=== PATIENT | female | born 1940 | race American Indian/Alaskan Native ===

== ENCOUNTER 2018-12-23 21:08 | Inpatient (IN) | payer MEDICARE ==
--- NOTE | 2018-12-23 21:33 | Cat Scan Report ---
PROCEDURE: CT head without contrast. TECHNIQUE: Computerized tomography of the head was performed without contrast material. CT DOSE LENGTH PRODUCT: 928.2 mGycm HISTORY: neuro deficits <6hrs or sx present upon awakening COMPARISONS: None. FINDINGS: There is mild cerebral atrophy. There is moderate evidence of chronic ischemic white matter disease. There are some small areas of encephalomalacia present. These are located in the right temporal lobe, right parietal lobe and the left parietal lobe. These were present previously. They likely represent previous infarcts. There are no mass lesions. There is no intracranial hemorrhage. The calvarium aleksandra ears intact. The mastoid air cells and paranasal sinuses are clear as far as visualized. The sella tu rcica is mildly enlarged with CSF attenuation. This could represent an empty sella. IMPRESSION: Chronic ischemic changes as described. Possible empty sella. No evidence of acute diseas e. This document is electronically signed by Сергей Lowery MD., December 23 2018 09:31:17 PM ET
[2018-12-23 21:52] LABS: Basophils % (Auto) 1.1 % (0.0-1.8); Eosinophils # (Auto) 0.1 K/mm3 (0.0-0.4); Eosinophils % (Auto) 1.4 % (0.0-4.3); Hematocrit 37.6 % (30.3-42.9); Hemoglobin 12.4 gm/dl (10.1-14.3); Lymphocytes % (Auto) 24.4 % (13.4-35.0); Mean Corpuscular HGB Conc 33 % (30-34); Mean Corpuscular Volume 79 fl (79-97); Monocytes # (Auto) 0.4 K/mm3 (0.0-0.8); Monocytes % (Auto) 8.5 % (0.0-7.3); Platelet Count 203 K/mm3 (140-440); Red Blood Count 4.77 M/mm3 (3.65-5.03); Red Cell Distribution Width 14.8 % (13.2-15.2)
[2018-12-23 22:14] LABS: BUN/Creatinine Ratio 10; Blood Urea Nitrogen 7 mg/dL (7-17); Calcium 9.3 mg/dL (8.4-10.2); Hemolysis Index 14
[2018-12-23 22:22] LABS: INR 0.95 (0.87-1.13); Partial Thromboplastin Time 24.3 Sec. (24.2-36.6)
--- NOTE | 2018-12-23 23:39 | Cat Scan Report ---
PROCEDURE: CT ANGIO NECK TECHNIQUE: CT angiogram neck with intravenous contrast HISTORY: CVA COMPARISONS: FINDINGS: Origin of the great vessels is unremarkable The common carotid arteries demonstrate normal course and caliber. There is minimal plaque formation at the right carotid bulb without evidence for significant stenosis . Mid to distal right ICA is unremarkable There is calcified plaque at the origin of the left ICA estimated degree of stenosis 38%. Distal lef t ICA is unremarkable. Both vertebral arteries are identified and normal in caliber without evidence for stenosis or occlusi on. IMPRESSION: Minimal plaque within the right carotid bulb Calcified plaque left carotid bulb estimated degree of stenosis 38% Otherwise negative study . This document is electronically signed by Norris Chester MD., December 23 2018 11:37:19 PM ET
[2018-12-24] MEDS ORDERED: BABY ASPIRIN PO ONE (00:11)
--- NOTE | 2018-12-24 00:27 | Cat Scan Report ---
PROCEDURE: CT ANGIO HEAD TECHNIQUE: Computerized tomographic angiography of the head was performed after the IV injection of iodinated nonionic contrast including image processing. The image data was postprocessed using 2-dim ensional multiplanar reformatted (MPR) and 3-dimensional (MIP and/or volume rendered) techniques. CT DOSE LENGTH PRODUCT: mGycm HISTORY: CVA COMPARISONS: CT of the head dated December 23, 2018 . FINDINGS: Carotid siphon: There is calcified plaque in the cavernous portions of the internal carotid arteries without stenosis. . Anterior cerebral: Normal . Middle cerebral: Normal . Posterior cerebral: Normal . Vertebral arteries including basilar: The right vertebral artery is dominant. There is minimal calci fied plaque. . Aneurysms: None . Dural sinuses: Normal. Incidental enlargement of the right thyroid gland with bilateral nodules. IMPRESSION: There is no intracranial arterial occlusion or stenosis. There is no aneurysm or vascula r malformation. There is atherosclerosis as described. . This document is electronically signed by Nghia Pardo MD., December 24 2018 12:25:23 AM ET
[2018-12-24] MEDS ORDERED: TYLENOL PO PRN ×2 (01:19→02:38)
[2018-12-24] MEDS ORDERED: SODIUM CHLORIDE FLUSH SYRINGE 10 ML IV PRN (01:19)
[2018-12-24] MEDS ORDERED: ZOFRAN IV PRN ×2 (01:19→02:38)
--- NOTE | 2018-12-24 02:19 | Emergency Department Report ---
ED Neuro Deficit HPI - General Chief Complaint: Neuro Symptoms/Deficit Stated Complaint: AMS/POSS STROKE Time Seen by Provider: 12/23/18 21:17 Source: patient, family, EMS Mode of arrival: Stretcher Limitations: Physical Limitation - History of Present Illness Initial Comments: Mrs. Ziegler is a 78 yo female with hx of HTN, Dementia, CVA who presents with stroke symptoms. noted that patient was leaning toward her left. She then developed confusion and left sided weakness. Symptoms began 1:30 PM. EMS noted left sided weakness and facial droop which is rapidly improving. According to EMR, experienced acute occipital infarct, CVA in September. stated that she had a complete recovery. -: Sudden, This morning Location: left face, left arm, left leg Presenting Symptoms: Present: Weak/Paralyzed One Side History of same: Yes Place: home Severity: moderate Quality: weak Improves With: time On Anticoagulants: No Context: sudden onset Associated Symptoms: denies other symptoms - Related Data Home Medications: Home Medications Medication Instructions Recorded Confirmed Last Taken Carvedilol [Coreg] 25 mg PO BID 10/08/18 12/23/18 Unknown Lisinopril/Hydrochlorothiazide 1 tab PO QDAY 10/08/18 12/23/18 Unknown [Zestoretic 20-12.5 mg] amLODIPine [Norvasc] 5 mg PO DAILY 10/08/18 12/23/18 Unknown Allergies/Adverse Reactions: Allergies Allergy/AdvReac Type Severity Reaction Status Date / Time No Known Allergies Allergy Verified 10/08/18 08:48 ED Review of Systems ROS: Stated complaint: AMS/POSS STROKE Other details as noted in HPI Comment: All other systems reviewed and negative Constitutional: denies: fever, malaise Respiratory: denies: cough Cardiovascular: denies: chest pain ED Past Medical Hx - Past Medical History Previous Medical History?: Yes Hx Hypertension: Yes Hx CVA: Yes (2016) Hx Diabetes: Yes Hx HIV: No - Surgical History Past Surgical History?: No - Social History Smoking Status: Never Smoker Substance Use Type: None - Medications Home Medications: Home Medications Medication Instructions Recorded Confirmed Last Taken Type Carvedilol [Coreg] 25 mg PO BID 10/08/18 12/23/18 Unknown History Lisinopril/Hydrochlorothiazide 1 tab PO QDAY 10/08/18 12/23/18 Unknown History [Zestoretic 20-12.5 mg] amLODIPine [Norvasc] 5 mg PO DAILY 10/08/18 12/23/18 Unknown History ED Neuro Physical Exam - General Limitations: Physical Limitation General appearance: alert, in no apparent distress Suspected Stroke: Yes - Head Head exam: Present: atraumatic, normocephalic - Eye Eye exam: Present: normal appearance - ENT ENT exam: Present: mucous membranes moist - Neck Neck exam: Present: normal inspection, full ROM - Respiratory Respiratory exam: Present: normal lung sounds bilaterally. Absent: respiratory distress, wheezes, rales, rhonchi - Cardiovascular Cardiovascular Exam: Present: regular rate, normal rhythm, normal heart sounds. Absent: systolic murmur, diastolic murmur, rubs, gallop - GI/Abdominal GI/Abdominal exam: Present: soft, normal bowel sounds. Absent: distended, tenderness, guarding, rebound - Extremities Exam Extremities exam: Present: normal inspection - Back Exam Back exam: Present: normal inspection - Neurological Exam Neurological exam: Present: alert, oriented X3 - NIHSS Assessment Interval: Baseline 1a. Level of Consciousness: alert/keenly responsive 1b. LOC Questions: answers both correctly 1c. LOC Commands: performs tasks correctly 2. Best Gaze: normal 3. Visual: no visual loss 4. Facial Palsy: minor paralysis 5b. Motor Arm Right: no drift 5a. Motor Arm Left: drift 6a. Motor Leg Left: drift 6b. Motor Leg Right: no drift 7. Limb Ataxia: absent 8. Sensory: normal 9. Best Language: no aphasia 10. Dysarthria: normal 11. Extinction/Inattention: no abnormality Total Score: 3 Stroke Severity: Minor Stroke - Psychiatric Psychiatric exam: Present: normal affect, normal mood - Skin Skin exam: Present: warm, dry, intact, normal color. Absent: rash ED Course Vital Signs 12/23/18 12/23/18 12/23/18 21:43 21:46 22:00 Temperature 98.7 F Pulse Rate 73 69 Respiratory 18 18 19 Rate Blood Pressure 166/103 166/53 Blood Pressure 166/53 [Right] O2 Sat by Pulse 97 97 98 Oximetry 12/23/18 12/23/18 12/23/18 23:00 23:20 23:30 Temperature 98.6 F Pulse Rate 75 75 74 Respiratory 14 15 20 Rate Blood Pressure 166/53 140/65 Blood Pressure 140/65 [Right] O2 Sat by Pulse 97 98 99 Oximetry 12/24/18 12/24/18 00:10 01:00 Temperature Pulse Rate 70 74 Respiratory 11 L 15 Rate Blood Pressure 177/77 Blood Pressure 166/72 [Right] O2 Sat by Pulse 98 98 Oximetry - Lab Data Result diagrams: 12/23/18 Unknown 12/23/18 Unknown Lab Results 12/23/18 12/23/18 12/23/18 Range/Units Unknown Unknown Unknown WBC 4.2 L (4.5-11.0) K/mm3 RBC 4.77 (3.65-5.03) M/mm3 Hgb 12.4 (10.1-14.3) gm/dl Hct 37.6 (30.3-42.9) % MCV 79 (79-97) fl MCH 26 L (28-32) pg MCHC 33 (30-34) % RDW 14.8 (13.2-15.2) % Plt Count 203 (140-440) K/mm3 Lymph % (Auto) 24.4 (13.4-35.0) % [place] % (Auto) 8.5 H (0.0-7.3) % Eos % (Auto) 1.4 (0.0-4.3) % Baso % (Auto) 1.1 (0.0-1.8) % Lymph # 1.0 L (1.2-5.4) K/mm3 [place] # 0.4 (0.0-0.8) K/mm3 Eos # 0.1 (0.0-0.4) K/mm3 Baso # 0.0 (0.0-0.1) K/mm3 Seg Neutrophils % 64.6 (40.0-70.0) % Seg Neutrophils # 2.7 (1.8-7.7) K/mm3 PT 13.2 (12.2-14.9) Sec. INR 0.95 (0.87-1.13) APTT 24.3 (24.2-36.6) Sec. Thrombin Time 16.3 (15.1-19.6) Sec. Sodium (137-145) mmol/L Potassium (3.6-5.0) mmol/L Chloride (98-107) mmol/L Carbon Dioxide (22-30) mmol/L Anion Gap mmol/L BUN (7-17) mg/dL Creatinine (0.7-1.2) mg/dL Estimated GFR ml/min BUN/Creatinine Ratio % Glucose (65-100) mg/dL Calcium (8.4-10.2) mg/dL Troponin T (0.00-0.029) ng/mL 12/23/18 Range/Units Unknown WBC (4.5-11.0) K/mm3 RBC (3.65-5.03) M/mm3 Hgb (10.1-14.3) gm/dl Hct (30.3-42.9) % MCV (79-97) fl MCH (28-32) pg MCHC (30-34) % RDW (13.2-15.2) % Plt Count (140-440) K/mm3 Lymph % (Auto) (13.4-35.0) % [place] % (Auto) (0.0-7.3) % Eos % (Auto) (0.0-4.3) % Baso % (Auto) (0.0-1.8) % Lymph # (1.2-5.4) K/mm3 [place] # (0.0-0.8) K/mm3 Eos # (0.0-0.4) K/mm3 Baso # (0.0-0.1) K/mm3 Seg Neutrophils % (40.0-70.0) % Seg Neutrophils # (1.8-7.7) K/mm3 PT (12.2-14.9) Sec. INR (0.87-1.13) APTT (24.2-36.6) Sec. Thrombin Time (15.1-19.6) Sec. Sodium 143 (137-145) mmol/L Potassium 3.7 (3.6-5.0) mmol/L Chloride 105.6 (98-107) mmol/L Carbon Dioxide 28 (22-30) mmol/L Anion Gap 13 mmol/L BUN 7 (7-17) mg/dL Creatinine 0.7 (0.7-1.2) mg/dL Estimated GFR > 60 ml/min BUN/Creatinine Ratio 10 % Glucose 118 H (65-100) mg/dL Calcium 9.3 (8.4-10.2) mg/dL Troponin T < 0.010 (0.00-0.029) ng/mL Interpretation: no acute changes 12/24/18 02:18 EKG obtained 2152 NSR 70 bpm nl axis nl intervals no ST elevation - Radiology Data Radiology results: report reviewed CT head: encephalomalacia, several remote infarcts, no acute process CTA neck: calcification carotid bulb, mild carotid stenosis CTA head: mild atherosclerosis - Medical Decision Making TIA, tpa not indicated with hx of recent CVA and rapidly improving symptoms. Given ASA, permissive hypertension admitted to hospitalist service in good condition Critical Care Time: Yes Critical care time in (mins) excluding proc time.: 40 Critical care attestation.: If time is entered above; I have spent that time in minutes in the direct care of this critically ill patient, excluding procedure time. 40 minutes of critical care time were used in the care of the patient excluding procedures. I spoke with hospitalist, neurologist, EMS. I came to stretcher immediately upon arrival. Code stroke activated. ED Disposition Clinical Impression: TIA (transient ischemic attack) Disposition: DC-09 OP ADMIT IP TO THIS HOSP Is pt being admited?: Yes Does the pt Need Aspirin: No Condition: Stable
[2018-12-24] MEDS ORDERED: LOVENOX SUB-Q ONE ×2 (02:36→03:39)
--- NOTE | 2018-12-24 02:43 | History and Physical Report ---
<STEFFI MARSHALL - Last Filed: 12/24/18 07:30> History of Present Illness Date of examination: 12/24/18 Date of admission: 12/25/2019 Chief complaint: TIA History of present illness: Patient is 78-year-old female with PMHx of HTN, Dementia, CVA who was brought to the ER by her who stated that he noticed that the patient was leaning toward her left side while sitting in the passenger seat. Pt's also states that pt developed confusion and some left sided weakness during that time. EMS was called, patient was noted to have left sided weakness and facial droop prior to coming to the ER. Patient was seen in the ER, alert but very confused and not able to complete the sentence or described the event that preceded the admission. Patient's at bedside reports that the patient was out with him and developed confusion and disorientation. Pt had a CT of the head and neck which showed some mild atrophy, 38% stenosis, Pt is admitted for further evaluation of CVA/TIA. Past History Past Medical History: hypertension, stroke, other (Dememtia) Past Surgical History: No surgical history Social history: no significant social history Medications and Allergies Allergies Allergy/AdvReac Type Severity Reaction Status Date / Time No Known Allergies Allergy Verified 10/08/18 08:48 Home Medications Medication Instructions Recorded Confirmed Last Taken Type Carvedilol [Coreg] 25 mg PO BID 10/08/18 12/23/18 Unknown History Lisinopril/Hydrochlorothiazide 1 tab PO QDAY 10/08/18 12/23/18 Unknown History [Zestoretic 20-12.5 mg] amLODIPine [Norvasc] 5 mg PO DAILY 10/08/18 12/23/18 Unknown History Aspirin [Aspirin BABY CHEW TAB] 81 mg PO QDAY #30 tab.chew 12/27/18 Unknown Rx AtorvaSTATin [Lipitor] 40 mg PO QHS #30 tablet 12/27/18 Unknown Rx Active Meds: Active Medications Acetaminophen (Tylenol) 650 mg PO Q4H PRN PRN Reason: Pain MILD(1-3)/Fever >100.5/SHAH Ondansetron HCl (Zofran) 4 mg IV Q8H PRN PRN Reason: Nausea And Vomiting Sodium Chloride (Sodium Chloride Flush Syringe 10 Ml) 10 ml IV BID ANNETTE Sodium Chloride (Sodium Chloride Flush Syringe 10 Ml) 10 ml IV PRN PRN PRN Reason: LINE FLUSH Review of Systems Neurological: weakness, other (facial droop) Exam - Constitutional Vitals: Temp Pulse Resp BP Pulse Ox 98.6 F 74 15 166/72 98 12/23/18 23:20 12/24/18 01:00 12/24/18 01:00 12/24/18 01:00 12/24/18 01:00 General appearance: Present: no acute distress - Neck Neck: Present: normal ROM - Respiratory Respiratory effort: normal Respiratory: bilateral: CTA - Cardiovascular Heart Sounds: Present: S1 & S2 - Extremities Extremities: no ischemia Peripheral Pulses: within normal limits - Abdominal General gastrointestinal: Present: non-tender, non-distended Female genitourinary: Present: deferred - Rectal Rectal Exam: deferred - Integumentary Integumentary: Present: warm, dry - Musculoskeletal Musculoskeletal: strength equal bilaterally - Psychiatric Psychiatric: appropriate mood/affect - Neurologic Neurologic: CNII-XII intact Results - Labs CBC & Chem 7: 12/23/18 Unknown 12/23/18 Unknown Labs: Laboratory Last Values WBC 4.2 K/mm3 (4.5-11.0) L 12/23/18 Unknown RBC 4.77 M/mm3 (3.65-5.03) 12/23/18 Unknown Hgb 12.4 gm/dl (10.1-14.3) 12/23/18 Unknown Hct 37.6 % (30.3-42.9) 12/23/18 Unknown MCV 79 fl (79-97) 12/23/18 Unknown MCH 26 pg (28-32) L 12/23/18 Unknown MCHC 33 % (30-34) 12/23/18 Unknown RDW 14.8 % (13.2-15.2) 12/23/18 Unknown Plt Count 203 K/mm3 (140-440) 12/23/18 Unknown Lymph % (Auto) 24.4 % (13.4-35.0) 12/23/18 Unknown [place] % (Auto) 8.5 % (0.0-7.3) H 12/23/18 Unknown Eos % (Auto) 1.4 % (0.0-4.3) 12/23/18 Unknown Baso % (Auto) 1.1 % (0.0-1.8) 12/23/18 Unknown Lymph # 1.0 K/mm3 (1.2-5.4) L 12/23/18 Unknown [place] # 0.4 K/mm3 (0.0-0.8) 12/23/18 Unknown Eos # 0.1 K/mm3 (0.0-0.4) 12/23/18 Unknown Baso # 0.0 K/mm3 (0.0-0.1) 12/23/18 Unknown Seg Neutrophils % 64.6 % (40.0-70.0) 12/23/18 Unknown Seg Neutrophils # 2.7 K/mm3 (1.8-7.7) 12/23/18 Unknown PT 13.2 Sec. (12.2-14.9) 12/23/18 Unknown INR 0.95 (0.87-1.13) 12/23/18 Unknown APTT 24.3 Sec. (24.2-36.6) 12/23/18 Unknown Thrombin Time 16.3 Sec. (15.1-19.6) 12/23/18 Unknown Sodium 143 mmol/L (137-145) 12/23/18 Unknown Potassium 3.7 mmol/L (3.6-5.0) 12/23/18 Unknown Chloride 105.6 mmol/L (98-107) 12/23/18 Unknown Carbon Dioxide 28 mmol/L (22-30) 12/23/18 Unknown Anion Gap 13 mmol/L 12/23/18 Unknown BUN 7 mg/dL (7-17) 12/23/18 Unknown Creatinine 0.7 mg/dL (0.7-1.2) 12/23/18 Unknown Estimated GFR > 60 ml/min 12/23/18 Unknown BUN/Creatinine Ratio 10 % 12/23/18 Unknown Glucose 118 mg/dL (65-100) H 12/23/18 Unknown Calcium 9.3 mg/dL (8.4-10.2) 12/23/18 Unknown Troponin T < 0.010 ng/mL (0.00-0.029) 12/23/18 Unknown Assessment and Plan Assessment and plan: 1. TIA/rule out CVA 2. Hypertension 3. History of CVA 4. Dementia Plan: Patient is admitted for TIA MRI of the brain to r/o CVA Continue neuro check Monitor blood pressure PT to evaluate and treat Case management for DC plan Patient's condition d/w patient and voiced understanding Patient's plan of care and condition was discussed with Dr. Gould Advance Directives: Yes VTE prophylaxis?: Chemical Plan of care discussed with patient/family: Yes <BEATRICE GOULD - Last Filed: 12/31/18 21:17> History of Present Illness Date of admission: 12/24/18 02:38 Chief complaint: Altered mental status and Lt sided weakness Exam - Constitutional Vitals: Temp Pulse Resp BP Pulse Ox 98.4 F 64 64 H 144/69 98 12/28/18 08:22 12/28/18 10:10 12/28/18 10:00 12/28/18 10:10 12/28/18 10:00 Results - Labs CBC & Chem 7: 12/23/18 Unknown 12/23/18 Unknown Labs: Laboratory Last Values WBC 4.2 K/mm3 (4.5-11.0) L 12/23/18 Unknown RBC 4.77 M/mm3 (3.65-5.03) 12/23/18 Unknown Hgb 12.4 gm/dl (10.1-14.3) 12/23/18 Unknown Hct 37.6 % (30.3-42.9) 12/23/18 Unknown MCV 79 fl (79-97) 12/23/18 Unknown MCH 26 pg (28-32) L 12/23/18 Unknown MCHC 33 % (30-34) 12/23/18 Unknown RDW 14.8 % (13.2-15.2) 12/23/18 Unknown Plt Count 203 K/mm3 (140-440) 12/23/18 Unknown Lymph % (Auto) 24.4 % (13.4-35.0) 12/23/18 Unknown [place] % (Auto) 8.5 % (0.0-7.3) H 12/23/18 Unknown Eos % (Auto) 1.4 % (0.0-4.3) 12/23/18 Unknown Baso % (Auto) 1.1 % (0.0-1.8) 12/23/18 Unknown Lymph # 1.0 K/mm3 (1.2-5.4) L 12/23/18 Unknown [place] # 0.4 K/mm3 (0.0-0.8) 12/23/18 Unknown Eos # 0.1 K/mm3 (0.0-0.4) 12/23/18 Unknown Baso # 0.0 K/mm3 (0.0-0.1) 12/23/18 Unknown Seg Neutrophils % 64.6 % (40.0-70.0) 12/23/18 Unknown Seg Neutrophils # 2.7 K/mm3 (1.8-7.7) 12/23/18 Unknown PT 13.2 Sec. (12.2-14.9) 12/23/18 Unknown INR 0.95 (0.87-1.13) 12/23/18 Unknown APTT 24.3 Sec. (24.2-36.6) 12/23/18 Unknown Thrombin Time 16.3 Sec. (15.1-19.6) 12/23/18 Unknown Sodium 143 mmol/L (137-145) 12/23/18 Unknown Potassium 3.7 mmol/L (3.6-5.0) 12/23/18 Unknown Chloride 105.6 mmol/L (98-107) 12/23/18 Unknown Carbon Dioxide 28 mmol/L (22-30) 12/23/18 Unknown Anion Gap 13 mmol/L 12/23/18 Unknown BUN 7 mg/dL (7-17) 12/23/18 Unknown Creatinine 0.7 mg/dL (0.7-1.2) 12/23/18 Unknown Estimated GFR > 60 ml/min 12/23/18 Unknown BUN/Creatinine Ratio 10 % 12/23/18 Unknown Glucose 118 mg/dL (65-100) H 12/23/18 Unknown POC Glucose 134 (70-105) H 12/24/18 13:26 Calcium 9.3 mg/dL (8.4-10.2) 12/23/18 Unknown Troponin T < 0.010 ng/mL (0.00-0.029) 12/23/18 Unknown Triglycerides 115 mg/dL (2-149) 12/24/18 10:19 Cholesterol 171 mg/dL (50-199) 12/24/18 10:19 LDL Cholesterol Direct 137 mg/dL (50-130) H 12/24/18 10:19 HDL Cholesterol 35 mg/dL (40-59) L 12/24/18 10:19 Cholesterol/HDL Ratio 4.88 % 12/24/18 10:19 Assessment and Plan Assessment and plan: Patient discussed with the CRITICAL CARE NURSE-C, I agree with the above documentations.
--- NOTE | 2018-12-24 04:19 | Consultation ---
History of Present Illness History of present illness: [facility] Impression: Stroke AMS: left sided weakness, may be b/cof completed stroke, or recrudescence. Not a tpa candidate due to: PAtient was last normal at 1 pm, history of recent stroke. CTA h/N is clear. Not on anhy meds. Lower extremity weakness, and predominatnely Differential Diagnosis: 1. Cardioembolic stroke 2. Small vessel disease/lacune 3. Thromboembolic, [id number] mechanism 4. Hypercoagulable state-related infarct 5. Transient ischemic attack 6. Thrombotic mechanism, large artery disease Comments: [facility] contacted: 9:03 pm [facility] at bedside: 9:07 pm NIHSS assessment time: same Recommendations: Inpatient neurology consultation Inpatient stroke evaluation as per Neurology/ Internal Medicine Discussed with ED MD Please call with questions CC History of Present Illness 78 year old female with a history of being normal at about 1 pm. She woke her up and said she had to go to the restroom. The last time she was up and walking around nomrally was 12:00 noon per her . She was recently discharged with history of stroke 1 month prior. Medicaion history is unkown, by bedside does not know history. Diagnostic: CT head is negative. Exam: NIHSS is 6. 1A: Level of Consciousness - Alert; keenly responsive 0 1B: Ask Month and Age - 1 Question Right +1 1C: 'Blink Eyes' & 'Squeeze Hands' - Performs Both Tasks 0 2: Test Horizontal Extraocular Movements - Normal 0 3: Test Visual [place] - 0 4: Test Facial Palsy - Normal symmetry 0 5A: Test Left Arm Motor Drift - Drift, but doesn't hit bed +1 5B: Test Right Arm Motor Drift - No Drift for 10 Seconds 0 6A: Test Left Leg Motor Drift - Drift, but doesn't hit bed +1 6B: Test Right Leg Motor Drift - No Drift for 5 Seconds 0 7: Test Limb Ataxia - No Ataxia 0 8: Test Sensation - Mild-Moderate Loss: Less Sharp/More Dull +1 9: Test Language/Aphasia - Normal; No aphasia 1 10: Test Dysarthria - Normal 0 11: Test Extinction/Inattention - Visual/tactile/auditory/spatial/personal inattention +1 Medical Decision Making: - Extensive number of diagnosis or management options are considered above. - Extensive amount of complex data reviewed. - High risk of complication and/or morbidity or mortality are associated with differential diagnostic considerations above. - There may be Uncertain outcome and increased probability of prolonged functional impairment or high probability of severe prolonged functional impairment associated with some of these differential diagnosis. Medical Data Reviewed: 1.Data reviewed include clinical labs, radiology, Medical Tests; 2.Tests results discussed w/performing or interpreting physician; 3.Obtain ing/reviewing old medical records; 4.Obtaining case history from another source; 5.Independent review of image, tracing or specimen. Patient was informed the Neurology Consult would happen via telehealth (remote video) and consented to receiving care in this manner. Medications and Allergies Allergies Allergy/AdvReac Type Severity Reaction Status Date / Time No Known Allergies Allergy Verified 10/08/18 08:48 Home Medications Medication Instructions Recorded Confirmed Last Taken Type Carvedilol [Coreg] 25 mg PO BID 10/08/18 12/23/18 Unknown History Lisinopril/Hydrochlorothiazide 1 tab PO QDAY 10/08/18 12/23/18 Unknown History [Zestoretic 20-12.5 mg] amLODIPine [Norvasc] 5 mg PO DAILY 10/08/18 12/23/18 Unknown History Active Meds: Active Medications Acetaminophen (Tylenol) 650 mg PO Q4H PRN PRN Reason: Pain MILD(1-3)/Fever >100.5/SHAH Ondansetron HCl (Zofran) 4 mg IV Q8H PRN PRN Reason: Nausea And Vomiting Sodium Chloride (Sodium Chloride Flush Syringe 10 Ml) 10 ml IV BID ANNETTE Sodium Chloride (Sodium Chloride Flush Syringe 10 Ml) 10 ml IV PRN PRN PRN Reason: LINE FLUSH Physical Examination - Vital Signs Vital Signs: Vital Signs Temp Pulse Resp BP Pulse Ox 98.7 F 73 18 166/53 97 12/23/18 21:43 12/23/18 21:43 12/23/18 21:43 12/23/18 21:43 12/23/18 21:43 Results - Laboratory Findings CBC and BMP: 12/23/18 Unknown 12/23/18 Unknown Abnormal Lab Findings: Abnormal Labs 12/23/18 12/23/18 Unknown Unknown WBC 4.2 L MCH 26 L [place] % (Auto) 8.5 H Lymph # 1.0 L Glucose 118 H
[2018-12-24] MEDS ORDERED: SODIUM CHLORIDE FLUSH SYRINGE 10 ML IV SCH (10:00)
[2018-12-24 11:20] LABS: Chol/HDL Ratio 4.88 %
[2018-12-24] MEDS: SODIUM CHLORIDE FLUSH SYRINGE 10 ML IV SCH ×2 (12:30→23:14)
[2018-12-24] MEDS: BABY ASPIRIN PO SCH (13:00)
--- NOTE | 2018-12-24 13:47 | Magnetic Resonance Report ---
MRI BRAIN WITHOUT CONTRAST: 12/24/18 02:38:00 CLINICAL: CVA/TIA COMPARISON: 12/23/18 CT Head and 10/09/18 MRI TECHNIQUE: Axial diffusion, T1, T2, gradient echo T2*, coronal and axial FLAIR and sagittal T1 sequences on a 1.5 Anna magnet. FINDINGS: The ventricles and sulci are large for age but are stable compared to the last exam. New subtle focal restricted diffusion in the right alvarenga radiata and persistent foci of restricted diffusion in the right temporal lobe at the margin of a subacute infarct. Similar persistent focal restricted diffusion at the margin of a subacute infarct of the left occipital lobe. No mass or mass effect. Extensive bilateral periventricular and subcortical white matter hyperintensities FLAIR and T2. Bilateral basal ganglia and centrum semi-ovale chronic lacunar infarcts. No evidence of hemorrhage. No chronic microbleeds on the gradient echo sequence. A chronic lacunar infarct of the right yaquelin. The sella turcica is filled with CSF in the pituitary is flattened at the base of the sella. The cerebellum is normal. Intact vascular flow voids. Normal sinuses. The orbits, and soft tissues are normal. Normal calvarium and skull base. IMPRESSION: 1. An acute/subacute nonhemorrhagic small infarct of the right coronary. 2. Chronic right temporal lobe and left occipital lobe infarcts are stable in size with evidence of persistent ischemia at the margins of the infarcts. The pattern of restricted diffusion has not changed since the 10/09/18 exam and this implies ongoing ischemia at the margins. 3. Global cortical atrophy and extensive chronic white matter microangiopathy.
[2018-12-24] MEDS: COREG PO SCH ×2 (14:45→23:14)
[2018-12-24] MEDS: NORVASC PO SCH (14:45)
--- NOTE | 2018-12-24 15:56 | Event Note ---
Date: 12/24/18 +CVA STATIN AND ASA ORDERED NEUROLOGY EVAL PENDING FURTHER WORK UP ONGOING
--- NOTE | 2018-12-24 15:58 | Consultation ---
History of Present Illness - Reason for Consult Consult date: 12/24/18 - History of Present Illness I did review the present MRI and there is clear cut three to four punctate infarcts of th e right hemisphere that suspects emboli will discuss with Dr. Downing there is typo in the report plan to recheck CTA Past History Past Medical History: hypertension, stroke, other (Dememtia) Past Surgical History: No surgical history Social history: no significant social history Medications and Allergies Allergies Allergy/AdvReac Type Severity Reaction Status Date / Time No Known Allergies Allergy Verified 10/08/18 08:48 Home Medications Medication Instructions Recorded Confirmed Last Taken Type Carvedilol [Coreg] 25 mg PO BID 10/08/18 12/23/18 Unknown History Lisinopril/Hydrochlorothiazide 1 tab PO QDAY 10/08/18 12/23/18 Unknown History [Zestoretic 20-12.5 mg] amLODIPine [Norvasc] 5 mg PO DAILY 10/08/18 12/23/18 Unknown History Active Meds: Active Medications Acetaminophen (Tylenol) 650 mg PO Q4H PRN PRN Reason: Pain MILD(1-3)/Fever >100.5/SHAH Amlodipine Besylate (Norvasc) 5 mg PO DAILY ANNETTE Aspirin (Baby Aspirin) 81 mg PO QDAY ANNETTE Atorvastatin Calcium (Lipitor) 40 mg PO QHS ANNETTE Carvedilol (Coreg) 25 mg PO BID ANNETTE Hydrochlorothiazide (Hctz) 12.5 mg PO QDAY ANNETTE Lisinopril (Zestril) 20 mg PO QDAY ANNETTE Ondansetron HCl (Zofran) 4 mg IV Q8H PRN PRN Reason: Nausea And Vomiting Sodium Chloride (Sodium Chloride Flush Syringe 10 Ml) 10 ml IV BID ANNETTE Sodium Chloride (Sodium Chloride Flush Syringe 10 Ml) 10 ml IV PRN PRN PRN Reason: LINE FLUSH Exam - Constitutional Vitals: Temp Pulse Resp BP Pulse Ox 98.6 F 67 15 143/76 97 12/23/18 23:20 12/24/18 09:30 12/24/18 09:30 12/24/18 09:30 12/24/18 09:30 Results - Labs CBC & Chem 7: 12/23/18 Unknown 12/23/18 Unknown Labs: Abnormal lab results 12/23/18 12/23/18 12/23/18 Range/Units 21:13 Unknown Unknown WBC 4.2 L (4.5-11.0) K/mm3 MCH 26 L (28-32) pg [place] % (Auto) 8.5 H (0.0-7.3) % Lymph # 1.0 L (1.2-5.4) K/mm3 Glucose 118 H (65-100) mg/dL POC Glucose 114 H (70-105) LDL Cholesterol Direct (50-130) mg/dL HDL Cholesterol (40-59) mg/dL 12/24/18 12/24/18 Range/Units 10:19 13:26 WBC (4.5-11.0) K/mm3 MCH (28-32) pg [place] % (Auto) (0.0-7.3) % Lymph # (1.2-5.4) K/mm3 Glucose (65-100) mg/dL POC Glucose 134 H (70-105) LDL Cholesterol Direct 137 H (50-130) mg/dL HDL Cholesterol 35 L (40-59) mg/dL
[2018-12-24] MEDS ORDERED: BABY ASPIRIN ONE (16:59)
[2018-12-25] MEDS ORDERED: NON-FORMULARY (Lisinopril/Hydrochlorothiazide [Zestoretic 20-12.5 Mg] 1 TAB) PO SCH (10:00)
[2018-12-25] MEDS: NORVASC PO SCH (10:13)
[2018-12-25] MEDS: ZESTRIL PO SCH (10:14)
[2018-12-25] MEDS: BABY ASPIRIN PO SCH (10:14)
[2018-12-25] MEDS: HCTZ PO SCH (10:14)
[2018-12-25] MEDS: COREG PO SCH ×2 (10:15→21:44)
[2018-12-25] MEDS: SODIUM CHLORIDE FLUSH SYRINGE 10 ML IV SCH ×2 (10:15→21:44)
--- NOTE | 2018-12-25 11:08 | Progress Note ---
Assessment and Plan Assessment and plan: Patient is 78-year-old female with PMHx of HTN, Dementia, CVA who was brought to the ER by her who stated that he noticed that the patient was leaning toward her left side while sitting in the passenger seat. Pt's also states that pt developed confusion and some left sided weakness during that time. EMS was called, patient was noted to have left sided weakness and facial droop prior to coming to the ER. Patient was seen in the ER, alert but very confused and not able to complete the sentence or described the event that preceded the admission. Patient's at bedside reports that the patient was out with him and developed confusion and disorientation. Pt had a CT of the head and neck which showed some mild atrophy, 38% stenosis, Pt is admitted for further evaluation of CVA/TIA. MRI BRAIN: IMPRESSION: 1. An acute/subacute nonhemorrhagic small infarct of the right coronary. 2. Chronic right temporal lobe and left occipital lobe infarcts are stable in size with evidence of persistent ischemia at the margins of the infarcts. The pattern of restricted diffusion has not changed since the 10/09/18 exam and this implies ongoing ischemia at the margins. 3. Global cortical atrophy and extensive chronic white matter microangiopathy. CT Angio Head: IMPRESSION: There is no intracranial arterial occlusion or stenosis. There is no aneurysm or vascular malformation. There is atherosclerosis as described. CT angio Neck: IMPRESSION: Minimal plaque within the right carotid bulb Calcified plaque left carotid bulb estimated degree of stenosis 38% Otherwise negative study CVA Acute Metabolic Encephalopathy Secondary to the cva but will evaluate for seizure due to dysathria Hypertension History of CVA Dementia Recurrent falls. Plan: Referral to [facility] on discharge to remove some device put in two to three years ago to "increase sexual drive PT/OT Rehab assessment-PER patient has had multiple falls Continue neuro check No cardiac arrythmia noted on imaging, will await ECHO Monitor blood pressure Neurology input noted Case management for DC plan Patient's condition d/w patient and voiced understanding History Interval history: Patient seen and examined this morning appears more coherent than she did yesterday although still with difficulty finding words. at bedside Hospitalist Physical - Physical exam Narrative exam: VITAL SIGNS: Reviewed. GENERAL: The patient appeared well nourished and normally developed, Vital signs as documented. HEAD: No signs of head trauma. EYES: Pupils are equal. Extraocular motions intact. EARS: Hearing grossly intact. MOUTH: Oropharynx is normal. NECK: No adenopathy, no JVD. CHEST: Chest with clear breath sounds bilaterally. No wheezes, rales, or rhonchi. CARDIAC: Regular rate and rhythm. S1 and S2, without murmurs, gallops, or rubs. VASCULAR: No Edema. Peripheral pulses normal and equal in all extremities. ABDOMEN: Soft, non tender and non distended. No rebound or guarding, and no masses palpated. Bowel Sounds normal. MUSCULOSKELETAL: Good range of motion of all major joints. Extremities without clubbing, cyanosis or edema. NEUROLOGIC EXAM: Alert and oriented x 3 No focal sensory or strength deficits. noted dysathria. Follows commands. gait not assessed PSYCHIATRIC: Mood normal. SKIN: No rash or lesions. - Constitutional Vitals: Temp Pulse Resp BP Pulse Ox 98.4 F 61 16 184/72 98 12/25/18 08:12 12/25/18 10:15 12/25/18 08:12 12/25/18 10:15 12/25/18 08:55 General appearance: Present: no acute distress Results - Labs CBC & Chem 7: 12/23/18 Unknown 12/23/18 Unknown Labs: Laboratory Last Values WBC 4.2 K/mm3 (4.5-11.0) L 12/23/18 Unknown RBC 4.77 M/mm3 (3.65-5.03) 12/23/18 Unknown Hgb 12.4 gm/dl (10.1-14.3) 12/23/18 Unknown Hct 37.6 % (30.3-42.9) 12/23/18 Unknown MCV 79 fl (79-97) 12/23/18 Unknown MCH 26 pg (28-32) L 12/23/18 Unknown MCHC 33 % (30-34) 12/23/18 Unknown RDW 14.8 % (13.2-15.2) 12/23/18 Unknown Plt Count 203 K/mm3 (140-440) 12/23/18 Unknown Lymph % (Auto) 24.4 % (13.4-35.0) 12/23/18 Unknown [place] % (Auto) 8.5 % (0.0-7.3) H 12/23/18 Unknown Eos % (Auto) 1.4 % (0.0-4.3) 12/23/18 Unknown Baso % (Auto) 1.1 % (0.0-1.8) 12/23/18 Unknown Lymph # 1.0 K/mm3 (1.2-5.4) L 12/23/18 Unknown [place] # 0.4 K/mm3 (0.0-0.8) 12/23/18 Unknown Eos # 0.1 K/mm3 (0.0-0.4) 12/23/18 Unknown Baso # 0.0 K/mm3 (0.0-0.1) 12/23/18 Unknown Seg Neutrophils % 64.6 % (40.0-70.0) 12/23/18 Unknown Seg Neutrophils # 2.7 K/mm3 (1.8-7.7) 12/23/18 Unknown PT 13.2 Sec. (12.2-14.9) 12/23/18 Unknown INR 0.95 (0.87-1.13) 12/23/18 Unknown APTT 24.3 Sec. (24.2-36.6) 12/23/18 Unknown Thrombin Time 16.3 Sec. (15.1-19.6) 12/23/18 Unknown Sodium 143 mmol/L (137-145) 12/23/18 Unknown Potassium 3.7 mmol/L (3.6-5.0) 12/23/18 Unknown Chloride 105.6 mmol/L (98-107) 12/23/18 Unknown Carbon Dioxide 28 mmol/L (22-30) 12/23/18 Unknown Anion Gap 13 mmol/L 12/23/18 Unknown BUN 7 mg/dL (7-17) 12/23/18 Unknown Creatinine 0.7 mg/dL (0.7-1.2) 12/23/18 Unknown Estimated GFR > 60 ml/min 12/23/18 Unknown BUN/Creatinine Ratio 10 % 12/23/18 Unknown Glucose 118 mg/dL (65-100) H 12/23/18 Unknown POC Glucose 134 (70-105) H 12/24/18 13:26 Calcium 9.3 mg/dL (8.4-10.2) 12/23/18 Unknown Troponin T < 0.010 ng/mL (0.00-0.029) 12/23/18 Unknown Triglycerides 115 mg/dL (2-149) 12/24/18 10:19 Cholesterol 171 mg/dL (50-199) 12/24/18 10:19 LDL Cholesterol Direct 137 mg/dL (50-130) H 12/24/18 10:19 HDL Cholesterol 35 mg/dL (40-59) L 12/24/18 10:19 Cholesterol/HDL Ratio 4.88 % 12/24/18 10:19 Active Medications - Current Medications Current Medications: Generic Name Dose Route Start Last Admin Trade Name Bossmanq PRN Reason Stop Dose Admin Acetaminophen 650 mg 12/24/18 01:19 Tylenol PO Q4H PRN Pain MILD(1-3)/Fever >100.5/SHAH Amlodipine Besylate 5 mg 12/24/18 10:00 12/25/18 10:13 Norvasc PO 5 mg DAILY ANNETTE Administration Aspirin 81 mg 12/24/18 13:00 12/25/18 10:14 Baby Aspirin PO 81 mg QDAY ANNETTE Administration Atorvastatin Calcium 40 mg 12/24/18 22:00 12/24/18 23:14 Lipitor PO 40 mg QHS ANNETTE Administration Carvedilol 25 mg 12/24/18 10:00 12/25/18 10:15 Coreg PO 25 mg BID ANNETTE Administration Hydrochlorothiazide 12.5 mg 12/25/18 10:00 12/25/18 10:14 Hctz PO 12.5 mg QDAY ANNETTE Administration Lisinopril 20 mg 12/25/18 10:00 12/25/18 10:14 Zestril PO 20 mg QDAY ANNETTE Administration Ondansetron HCl 4 mg 12/24/18 01:19 Zofran IV Q8H PRN Nausea And Vomiting Sodium Chloride 10 ml 12/24/18 10:00 12/25/18 10:15 Sodium Chloride Flush Syringe 10 Ml IV 10 ml BID ANNETTE Administration Sodium Chloride 10 ml 12/24/18 01:19 Sodium Chloride Flush Syringe 10 Ml IV PRN PRN LINE FLUSH
--- NOTE | 2018-12-25 15:21 | Consultation ---
History of Present Illness - Reason for Consult Consult date: 12/25/18 - History of Present Illness seen yesterday in the holding area with another family member confusion and poor speech is apparent suspect old stroke is major issue plan EEG to r/o seizure Past History Past Medical History: hypertension, stroke, other (Dememtia) Past Surgical History: No surgical history Social history: no significant social history Medications and Allergies Allergies Allergy/AdvReac Type Severity Reaction Status Date / Time No Known Allergies Allergy Verified 10/08/18 08:48 Home Medications Medication Instructions Recorded Confirmed Last Taken Type Carvedilol [Coreg] 25 mg PO BID 10/08/18 12/23/18 Unknown History Lisinopril/Hydrochlorothiazide 1 tab PO QDAY 10/08/18 12/23/18 Unknown History [Zestoretic 20-12.5 mg] amLODIPine [Norvasc] 5 mg PO DAILY 10/08/18 12/23/18 Unknown History Active Meds: Active Medications Acetaminophen (Tylenol) 650 mg PO Q4H PRN PRN Reason: Pain MILD(1-3)/Fever >100.5/SHAH Amlodipine Besylate (Norvasc) 5 mg PO DAILY [facility] Last Admin: 12/25/18 10:13 Dose: 5 mg Documented by: Aspirin (Baby Aspirin) 81 mg PO QDAY [facility] Last Admin: 12/25/18 10:14 Dose: 81 mg Documented by: Atorvastatin Calcium (Lipitor) 40 mg PO QHS [facility] Last Admin: 12/24/18 23:14 Dose: 40 mg Documented by: Carvedilol (Coreg) 25 mg PO BID [facility] Last Admin: 12/25/18 10:15 Dose: 25 mg Documented by: Hydrochlorothiazide (Hctz) 12.5 mg PO QDAY [facility] Last Admin: 12/25/18 10:14 Dose: 12.5 mg Documented by: Lisinopril (Zestril) 20 mg PO QDAY [facility] Last Admin: 12/25/18 10:14 Dose: 20 mg Documented by: Ondansetron HCl (Zofran) 4 mg IV Q8H PRN PRN Reason: Nausea And Vomiting Sodium Chloride (Sodium Chloride Flush Syringe 10 Ml) 10 ml IV BID [facility] Last Admin: 12/25/18 10:15 Dose: 10 ml Documented by: Sodium Chloride (Sodium Chloride Flush Syringe 10 Ml) 10 ml IV PRN PRN PRN Reason: LINE FLUSH Exam - Constitutional Vitals: Temp Pulse Resp BP Pulse Ox 98.4 F 61 16 184/72 98 12/25/18 08:12 12/25/18 10:15 12/25/18 08:12 12/25/18 10:15 12/25/18 08:55 Results - Labs CBC & Chem 7: 12/23/18 Unknown 12/23/18 Unknown
--- NOTE | 2018-12-26 08:26 | Progress Note ---
Subjective Date of service: 12/26/18 Interval history: I want to establish if there was source of emboli causing strokes in same vascular distribution see orders Objective - Vital Sign Vital Signs - 12hr 12/25/18 12/26/18 12/26/18 21:44 00:00 04:44 Temperature 98.6 F 98.0 F Pulse Rate 66 66 63 Respiratory 14 16 Rate Blood Pressure 110/63 135/68 167/64 O2 Sat by Pulse 95 98 99 Oximetry - Laboratory Findings CBC and BMP: 12/23/18 Unknown 12/23/18 Unknown Abnormal Lab Findings: Abnormal Labs 12/23/18 12/23/18 12/23/18 21:13 Unknown Unknown WBC 4.2 L MCH 26 L [place] % (Auto) 8.5 H Lymph # 1.0 L Glucose 118 H POC Glucose 114 H LDL Cholesterol Direct HDL Cholesterol 12/24/18 12/24/18 10:19 13:26 WBC MCH [place] % (Auto) Lymph # Glucose POC Glucose 134 H LDL Cholesterol Direct 137 H HDL Cholesterol 35 L
[2018-12-26] MEDS: COREG PO SCH (09:47)
[2018-12-26] MEDS: NORVASC PO SCH (10:01)
[2018-12-26] MEDS: HCTZ PO SCH (10:01)
[2018-12-26] MEDS: BABY ASPIRIN PO SCH (10:02)
[2018-12-26] MEDS: ZESTRIL PO SCH (10:02)
[2018-12-26] MEDS: SODIUM CHLORIDE FLUSH SYRINGE 10 ML IV SCH (10:03)
--- NOTE | 2018-12-26 15:56 | Progress Note ---
Assessment and Plan Assessment and plan: Patient is 78-year-old female with PMHx of HTN, Dementia, CVA who was brought to the ER by her who stated that he noticed that the patient was leaning toward her left side while sitting in the passenger seat. Pt's also states that pt developed confusion and some left sided weakness during that time. EMS was called, patient was noted to have left sided weakness and facial droop prior to coming to the ER. Patient was seen in the ER, alert but very confused and not able to complete the sentence or described the event that preceded the admission. Patient's at bedside reports that the patient was out with him and developed confusion and disorientation. Pt had a CT of the head and neck which showed some mild atrophy, 38% stenosis, Pt is admitted for further evaluation of CVA/TIA. MRI BRAIN: IMPRESSION: 1. An acute/subacute nonhemorrhagic small infarct of the right coronary. 2. Chronic right temporal lobe and left occipital lobe infarcts are stable in size with evidence of persistent ischemia at the margins of the infarcts. The pattern of restricted diffusion has not changed since the 10/09/18 exam and this implies ongoing ischemia at the margins. 3. Global cortical atrophy and extensive chronic white matter microangiopathy. CT Angio Head: IMPRESSION: There is no intracranial arterial occlusion or stenosis. There is no aneurysm or vascular malformation. There is atherosclerosis as described. CT angio Neck: IMPRESSION: Minimal plaque within the right carotid bulb Calcified plaque left carotid bulb estimated degree of stenosis 38% Otherwise negative study CVA Acute Metabolic Encephalopathy Secondary to the cva but will evaluate for seizure due to dysathria Hypertension History of CVA Dementia This after Recurrent falls. Plan: Neurologic improvement noted. Echocardiogram does not demonstrate any cardiac mass vegetations or shunt. We'll await PT evaluation for proper disposition. Referral to [facility] on discharge to remove some device put in two to three years ago to "increase sexual drive PT/OT Rehab assessment-PER patient has had multiple falls Continue neuro check No cardiac arrythmia noted on imaging Can discontinue Tele Monitor blood pressure Neurology input noted Case management for DC plan Patient's condition d/w patient and voiced understanding History Interval history: Patient seen and examined this morning although patient is more coherent still has difficulty finding words grandson at the bedside the patient has failed to ascertain questions that he is pretty sure she knows the acid to include in the name of her great grandchild. At the time of my exam was still awaiting the echocardiogram reports. Hospitalist Physical - Physical exam Narrative exam: VITAL SIGNS: Reviewed. GENERAL: The patient appeared well nourished and normally developed, Vital signs as documented. HEAD: No signs of head trauma. EYES: Pupils are equal. Extraocular motions intact. EARS: Hearing grossly intact. MOUTH: Oropharynx is normal. NECK: No adenopathy, no JVD. CHEST: Chest with clear breath sounds bilaterally. No wheezes, rales, or rhonchi. CARDIAC: Regular rate and rhythm. S1 and S2, without murmurs, gallops, or rubs. VASCULAR: No Edema. Peripheral pulses normal and equal in all extremities. ABDOMEN: Soft, non tender and non distended. No rebound or guarding, and no masses palpated. Bowel Sounds normal. MUSCULOSKELETAL: Good range of motion of all major joints. Extremities without clubbing, cyanosis or edema. NEUROLOGIC EXAM: Alert and oriented x 3 although still rambling with Narvaez's. No focal sensory or strength deficits. noted dysathria. Follows commands. gait not assessed PSYCHIATRIC: Mood normal. SKIN: No rash or lesions. - Constitutional Vitals: Temp Pulse Resp BP Pulse Ox 97.7 F 66 16 149/66 98 12/26/18 08:09 12/26/18 10:02 12/26/18 08:09 12/26/18 08:09 12/26/18 10:25 General appearance: Present: no acute distress Results - Labs CBC & Chem 7: 12/23/18 Unknown 12/23/18 Unknown Labs: Laboratory Last Values WBC 4.2 K/mm3 (4.5-11.0) L 12/23/18 Unknown RBC 4.77 M/mm3 (3.65-5.03) 12/23/18 Unknown Hgb 12.4 gm/dl (10.1-14.3) 12/23/18 Unknown Hct 37.6 % (30.3-42.9) 12/23/18 Unknown MCV 79 fl (79-97) 12/23/18 Unknown MCH 26 pg (28-32) L 12/23/18 Unknown MCHC 33 % (30-34) 12/23/18 Unknown RDW 14.8 % (13.2-15.2) 12/23/18 Unknown Plt Count 203 K/mm3 (140-440) 12/23/18 Unknown Lymph % (Auto) 24.4 % (13.4-35.0) 12/23/18 Unknown [place] % (Auto) 8.5 % (0.0-7.3) H 12/23/18 Unknown Eos % (Auto) 1.4 % (0.0-4.3) 12/23/18 Unknown Baso % (Auto) 1.1 % (0.0-1.8) 12/23/18 Unknown Lymph # 1.0 K/mm3 (1.2-5.4) L 12/23/18 Unknown [place] # 0.4 K/mm3 (0.0-0.8) 12/23/18 Unknown Eos # 0.1 K/mm3 (0.0-0.4) 12/23/18 Unknown Baso # 0.0 K/mm3 (0.0-0.1) 12/23/18 Unknown Seg Neutrophils % 64.6 % (40.0-70.0) 12/23/18 Unknown Seg Neutrophils # 2.7 K/mm3 (1.8-7.7) 12/23/18 Unknown PT 13.2 Sec. (12.2-14.9) 12/23/18 Unknown INR 0.95 (0.87-1.13) 12/23/18 Unknown APTT 24.3 Sec. (24.2-36.6) 12/23/18 Unknown Thrombin Time 16.3 Sec. (15.1-19.6) 12/23/18 Unknown Sodium 143 mmol/L (137-145) 12/23/18 Unknown Potassium 3.7 mmol/L (3.6-5.0) 12/23/18 Unknown Chloride 105.6 mmol/L (98-107) 12/23/18 Unknown Carbon Dioxide 28 mmol/L (22-30) 12/23/18 Unknown Anion Gap 13 mmol/L 12/23/18 Unknown BUN 7 mg/dL (7-17) 12/23/18 Unknown Creatinine 0.7 mg/dL (0.7-1.2) 12/23/18 Unknown Estimated GFR > 60 ml/min 12/23/18 Unknown BUN/Creatinine Ratio 10 % 12/23/18 Unknown Glucose 118 mg/dL (65-100) H 12/23/18 Unknown POC Glucose 134 (70-105) H 12/24/18 13:26 Calcium 9.3 mg/dL (8.4-10.2) 12/23/18 Unknown Troponin T < 0.010 ng/mL (0.00-0.029) 12/23/18 Unknown Triglycerides 115 mg/dL (2-149) 12/24/18 10:19 Cholesterol 171 mg/dL (50-199) 12/24/18 10:19 LDL Cholesterol Direct 137 mg/dL (50-130) H 12/24/18 10:19 HDL Cholesterol 35 mg/dL (40-59) L 12/24/18 10:19 Cholesterol/HDL Ratio 4.88 % 12/24/18 10:19 Active Medications - Current Medications Current Medications: Generic Name Dose Route Start Last Admin Trade Name Freq PRN Reason Stop Dose Admin Acetaminophen 650 mg 12/24/18 01:19 Tylenol PO Q4H PRN Pain MILD(1-3)/Fever >100.5/SHAH Amlodipine Besylate 5 mg 12/24/18 10:00 12/26/18 10:01 Norvasc PO 5 mg DAILY ANNETTE Administration Aspirin 81 mg 12/24/18 13:00 12/26/18 10:02 Baby Aspirin PO 81 mg QDAY ANNETTE Administration Atorvastatin Calcium 40 mg 12/24/18 22:00 12/25/18 21:44 Lipitor PO 40 mg QHS ANNETTE Administration Carvedilol 25 mg 12/24/18 10:00 12/26/18 09:47 Coreg PO 25 mg BID ANNETTE Administration Hydrochlorothiazide 12.5 mg 12/25/18 10:00 12/26/18 10:01 Hctz PO 12.5 mg QDAY ANNETTE Administration Lisinopril 20 mg 12/25/18 10:00 12/26/18 10:02 Zestril PO 20 mg QDAY ANNETTE Administration Ondansetron HCl 4 mg 12/24/18 01:19 Zofran IV Q8H PRN Nausea And Vomiting Sodium Chloride 10 ml 12/24/18 10:00 12/26/18 10:03 Sodium Chloride Flush Syringe 10 Ml IV 10 ml BID ANNETTE Administration Sodium Chloride 10 ml 12/24/18 01:19 Sodium Chloride Flush Syringe 10 Ml IV PRN PRN LINE FLUSH
--- NOTE | 2018-12-27 08:58 | Discharge Summary ---
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 12/24/18 09:16 Consult to Physician [CONS] Routine Comment: Consulting Provider: ARIELLE MCCULLOUGH Physician Instructions: Reason For Exam: cva 12/24/18 15:10 Speech Therapy Evaluation and Treat [CONS] Stat Reason For Exam: stroke 12/25/18 11:19 Consult Acute Rehabilitation [CONS] Routine Consulting Provider: Physician Instructions: Reason For Exam: IRU Evaluation 12/25/18 11:54 Occupational Therapy Evaluate and Treat [CONS] Routine Comment: Reason For Exam: WEAKNESS Primary care physician: FUR CUTTER Hospitalization Reason for admission: cva Condition: Stable Hospital course: Patient is 78-year-old female with PMHx of HTN, Dementia, CVA who was brought to the ER by her who stated that he noticed that the patient was leaning toward her left side while sitting in the passenger seat. Pt's also states that pt developed confusion and some left sided weakness during that time. EMS was called, patient was noted to have left sided weakness and facial droop prior to coming to the ER. Patient was seen in the ER, alert but very confused and not able to complete the sentence or described the event that preceded the admission. Patient's at bedside reports that the patient was out with him and developed confusion and disorientation. Pt had a CT of the head and neck which showed some mild atrophy, 38% stenosis, Pt is admitted for further evaluation of CVA/TIA. MRI BRAIN: IMPRESSION: 1. An acute/subacute nonhemorrhagic small infarct of the right coronary. 2. Chronic right temporal lobe and left occipital lobe infarcts are stable in size with evidence of persistent ischemia at the margins of the infarcts. The pattern of restricted diffusion has not changed since the 10/09/18 exam and this implies ongoing ischemia at the margins. 3. Global cortical atrophy and extensive chronic white matter microangiopathy. CT Angio Head: IMPRESSION: There is no intracranial arterial occlusion or stenosis. There is no aneurysm or vascular malformation. There is atherosclerosis as described. CT angio Neck: IMPRESSION: Minimal plaque within the right carotid bulb Calcified plaque left carotid bulb estimated degree of stenosis 38% Otherwise negative study Patient was monitored in house was initially with some confusion but this improved. Echocardiogram does not demonstrate any cardiac mass vegetations or shunt. PT initially recommended acute Rehab but patient declined. And will go home with home health. Understands the risk associated. She is ambulating back and forth to the bathroom unassisted. Discharge Diagnosis. CVA Acute Metabolic Encephalopathy Secondary to the cva but will evaluate for seizure due to dysathria Hypertension History of CVA Dementia Recurrent falls. Disposition: [facility] Time spent for discharge: 35 mins Core Measure Documentation - Palliative Care Palliative Care/ Comfort Measures: Not Applicable - Core Measures Any of the following diagnoses?: none Exam - Physical Exam Narrative exam: VITAL SIGNS: Reviewed. GENERAL: The patient appeared well nourished and normally developed, Vital signs as documented. HEAD: No signs of head trauma. EYES: Pupils are equal. Extraocular motions intact. EARS: Hearing grossly intact. MOUTH: Oropharynx is normal. NECK: No adenopathy, no JVD. CHEST: Chest with clear breath sounds bilaterally. No wheezes, rales, or rhonchi. CARDIAC: Regular rate and rhythm. S1 and S2, without murmurs, gallops, or rubs. VASCULAR: No Edema. Peripheral pulses normal and equal in all extremities. ABDOMEN: Soft, non tender and non distended. No rebound or guarding, and no masses palpated. Bowel Sounds normal. MUSCULOSKELETAL: Good range of motion of all major joints. Extremities without clubbing, cyanosis or edema. NEUROLOGIC EXAM: Alert and oriented x 3 although still rambling with Narvaez's. No focal sensory or strength deficits. noted dysathria. Follows commands. gait not assessed PSYCHIATRIC: Mood normal. SKIN: No rash or lesions. - Constitutional Vitals: Temp Pulse Resp BP Pulse Ox 98.3 F 65 20 141/70 99 12/27/18 07:21 12/27/18 07:21 12/27/18 07:21 12/27/18 07:21 12/27/18 07:21 Plan Activity: advance as tolerated, fall precautions Diet: low fat Special Instructions: record daily BP diary, physical therapy, occupational therapy, home health RN Additional Instructions: follow with cardiology for possible event monitoring a nd evaluation if patient has paroxysmal atrial fibrillation Follow up with: MELA BROCK MD [Staff Physician] - 7 Days PRIMARY [facility]ARE, [Primary Care Provider] - 7 Days ARIELLE MCCULLOUGH MD [Staff Physician] - 7 Days FREDERIC VIVAS MD [Staff Physician] - 7 Days Prescriptions: AtorvaSTATin [Lipitor] 40 mg PO QHS #30 tablet Aspirin [Aspirin BABY CHEW TAB] 81 mg PO QDAY #30 tab.chew
[2018-12-27] MEDS: NORVASC PO SCH (09:53)
[2018-12-27] MEDS: HCTZ PO SCH (09:53)
[2018-12-27] MEDS: COREG PO SCH ×3 (09:54→21:46)
[2018-12-27] MEDS: BABY ASPIRIN PO SCH (09:54)
[2018-12-27] MEDS: SODIUM CHLORIDE FLUSH SYRINGE 10 ML IV SCH ×3 (09:58→21:47)
[2018-12-27] MEDS: ZESTRIL PO SCH (10:00)
--- NOTE | 2018-12-27 15:03 | Progress Note ---
Assessment and Plan Assessment and plan: Patient is 78-year-old female with PMHx of HTN, Dementia, CVA who was brought to the ER by her who stated that he noticed that the patient was leaning toward her left side while sitting in the passenger seat. Pt's also states that pt developed confusion and some left sided weakness during that time. EMS was called, patient was noted to have left sided weakness and facial droop prior to coming to the ER. Patient was seen in the ER, alert but very confused and not able to complete the sentence or described the event that preceded the admission. Patient's at bedside reports that the patient was out with him and developed confusion and disorientation. Pt had a CT of the head and neck which showed some mild atrophy, 38% stenosis, Pt is admitted for further evaluation of CVA/TIA. MRI BRAIN: IMPRESSION: 1. An acute/subacute nonhemorrhagic small infarct of the right coronary. 2. Chronic right temporal lobe and left occipital lobe infarcts are stable in size with evidence of persistent ischemia at the margins of the infarcts. The pattern of restricted diffusion has not changed since the 10/09/18 exam and this implies ongoing ischemia at the margins. 3. Global cortical atrophy and extensive chronic white matter microangiopathy. CT Angio Head: IMPRESSION: There is no intracranial arterial occlusion or stenosis. There is no aneurysm or vascular malformation. There is atherosclerosis as described. CT angio Neck: IMPRESSION: Minimal plaque within the right carotid bulb Calcified plaque left carotid bulb estimated degree of stenosis 38% Otherwise negative study CVA Acute Metabolic Encephalopathy Secondary to the cva but will evaluate for seizure due to dysathria Hypertension History of CVA Dementia This after Recurrent falls. Plan: Neurologic improvement noted. Echocardiogram. EF 50-55% Referral to [employer] on discharge to remove some device put in two to three years ago to "increase sexual drive PT/OT Rehab assessment-PER patient has had multiple falls Continue neuro check No cardiac arrythmia noted on imaging Monitor blood pressure Neurology input noted Case management for DC plan Patient's condition d/w patient and voiced understanding History Interval history: Patient seen and examined this morning, more awake and coherent today. Hospitalist Physical - Physical exam Narrative exam: VITAL SIGNS: Reviewed. GENERAL: The patient appeared well nourished and normally developed, Vital signs as documented. HEAD: No signs of head trauma. EYES: Pupils are equal. Extraocular motions intact. EARS: Hearing grossly intact. MOUTH: Oropharynx is normal. NECK: No adenopathy, no JVD. CHEST: Chest with clear breath sounds bilaterally. No wheezes, rales, or rhonchi. CARDIAC: Regular rate and rhythm. S1 and S2, without murmurs, gallops, or rubs. VASCULAR: No Edema. Peripheral pulses normal and equal in all extremities. ABDOMEN: Soft, non tender and non distended. No rebound or guarding, and no masses palpated. Bowel Sounds normal. MUSCULOSKELETAL: Good range of motion of all major joints. Extremities without clubbing, cyanosis or edema. NEUROLOGIC EXAM: Alert and oriented x 3 although still rambling with Narvaez's. No focal sensory or strength deficits. noted dysathria. Follows commands. gait not assessed PSYCHIATRIC: Mood normal. SKIN: No rash or lesions. - Constitutional Vitals: Temp Pulse Resp BP Pulse Ox 98.3 F 65 20 141/70 99 12/27/18 07:21 12/27/18 07:21 12/27/18 07:21 12/27/18 07:21 12/27/18 07:21 General appearance: Present: no acute distress Results - Labs CBC & Chem 7: 12/23/18 Unknown 12/23/18 Unknown Labs: Laboratory Last Values WBC 4.2 K/mm3 (4.5-11.0) L 12/23/18 Unknown RBC 4.77 M/mm3 (3.65-5.03) 12/23/18 Unknown Hgb 12.4 gm/dl (10.1-14.3) 12/23/18 Unknown Hct 37.6 % (30.3-42.9) 12/23/18 Unknown MCV 79 fl (79-97) 12/23/18 Unknown MCH 26 pg (28-32) L 12/23/18 Unknown MCHC 33 % (30-34) 12/23/18 Unknown RDW 14.8 % (13.2-15.2) 12/23/18 Unknown Plt Count 203 K/mm3 (140-440) 12/23/18 Unknown Lymph % (Auto) 24.4 % (13.4-35.0) 12/23/18 Unknown Hubbard % (Auto) 8.5 % (0.0-7.3) H 12/23/18 Unknown Eos % (Auto) 1.4 % (0.0-4.3) 12/23/18 Unknown Baso % (Auto) 1.1 % (0.0-1.8) 12/23/18 Unknown Lymph # 1.0 K/mm3 (1.2-5.4) L 12/23/18 Unknown Hubbard # 0.4 K/mm3 (0.0-0.8) 12/23/18 Unknown Eos # 0.1 K/mm3 (0.0-0.4) 12/23/18 Unknown Baso # 0.0 K/mm3 (0.0-0.1) 12/23/18 Unknown Seg Neutrophils % 64.6 % (40.0-70.0) 12/23/18 Unknown Seg Neutrophils # 2.7 K/mm3 (1.8-7.7) 12/23/18 Unknown PT 13.2 Sec. (12.2-14.9) 12/23/18 Unknown INR 0.95 (0.87-1.13) 12/23/18 Unknown APTT 24.3 Sec. (24.2-36.6) 12/23/18 Unknown Thrombin Time 16.3 Sec. (15.1-19.6) 12/23/18 Unknown Sodium 143 mmol/L (137-145) 12/23/18 Unknown Potassium 3.7 mmol/L (3.6-5.0) 12/23/18 Unknown Chloride 105.6 mmol/L (98-107) 12/23/18 Unknown Carbon Dioxide 28 mmol/L (22-30) 12/23/18 Unknown Anion Gap 13 mmol/L 12/23/18 Unknown BUN 7 mg/dL (7-17) 12/23/18 Unknown Creatinine 0.7 mg/dL (0.7-1.2) 12/23/18 Unknown Estimated GFR > 60 ml/min 12/23/18 Unknown BUN/Creatinine Ratio 10 % 12/23/18 Unknown Glucose 118 mg/dL (65-100) H 12/23/18 Unknown POC Glucose 134 (70-105) H 12/24/18 13:26 Calcium 9.3 mg/dL (8.4-10.2) 12/23/18 Unknown Troponin T < 0.010 ng/mL (0.00-0.029) 12/23/18 Unknown Triglycerides 115 mg/dL (2-149) 12/24/18 10:19 Cholesterol 171 mg/dL (50-199) 12/24/18 10:19 LDL Cholesterol Direct 137 mg/dL (50-130) H 12/24/18 10:19 HDL Cholesterol 35 mg/dL (40-59) L 12/24/18 10:19 Cholesterol/HDL Ratio 4.88 % 12/24/18 10:19 Active Medications - Current Medications Current Medications: Generic Name Dose Route Start Last Admin Trade Name Freq PRN Reason Stop Dose Admin Acetaminophen 650 mg 12/24/18 01:19 Tylenol PO Q4H PRN Pain MILD(1-3)/Fever >100.5/SHAH Amlodipine Besylate 5 mg 12/24/18 10:00 12/27/18 09:53 Norvasc PO 5 mg DAILY ANNETTE Administration Aspirin 81 mg 12/24/18 13:00 12/27/18 09:54 Baby Aspirin PO 81 mg QDAY ANNETTE Administration Atorvastatin Calcium 40 mg 12/24/18 22:00 12/26/18 22:45 Lipitor PO 40 mg QHS ANNETTE Administration Carvedilol 25 mg 12/24/18 10:00 12/27/18 09:58 Coreg PO 25 mg BID ANNETTE Administration Hydrochlorothiazide 12.5 mg 12/25/18 10:00 12/27/18 09:53 Hctz PO 12.5 mg QDAY ANNETTE Administration Lisinopril 20 mg 12/25/18 10:00 12/26/18 10:02 Zestril PO 20 mg QDAY ANNETTE Administration Ondansetron HCl 4 mg 12/24/18 01:19 Zofran IV Q8H PRN Nausea And Vomiting Sodium Chloride 10 ml 12/24/18 10:00 12/27/18 09:58 Sodium Chloride Flush Syringe 10 Ml IV 10 ml BID ANNETTE Administration Sodium Chloride 10 ml 12/24/18 01:19 Sodium Chloride Flush Syringe 10 Ml IV PRN PRN LINE FLUSH
[2018-12-28 09:09] VITALS: BP 144/69
[2018-12-28] MEDS: NORVASC PO SCH (10:08)
[2018-12-28] MEDS: BABY ASPIRIN PO SCH (10:08)
[2018-12-28] MEDS: HCTZ PO SCH (10:09)
[2018-12-28] MEDS: COREG PO SCH (10:09)
[2018-12-28] MEDS: SODIUM CHLORIDE FLUSH SYRINGE 10 ML IV SCH (10:10)
[2018-12-28] MEDS: ZESTRIL PO SCH (10:10)
== END 2018-12-28 10:56 | disposition home health service (06) | DRG 64 ==
LOC: ED 21:08 → 4A 12-24 02:38 → 2B-ACE 12-26 18:32
PROVIDERS: ADMIT Internal Medicine; ATTEND Internal Medicine
DX: I63.9 Cerebral infarction, unspecified (principal); G93.41 Metabolic encephalopathy; G81.94 Hemiplegia, unspecified affecting left nondominant side; E11.9 Type 2 diabetes mellitus without complications; R29.810 Facial weakness; R29.706 NIHSS score 6; I10 Essential (primary) hypertension; F03.90 Unspecified dementia, unspecified severity, without behavioral disturbance, psychotic disturbance, mood disturbance, and anxiety; Z86.73 Personal history of transient ischemic attack (TIA), and cerebral infarction without residual deficits; Z79.899 Other long term (current) drug therapy; Z79.82 Long term (current) use of aspirin; Z79.84 Long term (current) use of oral hypoglycemic drugs
CPT/HCPCS: 36415; 70450; 70496; 70498; 70551; 80048; 80061; 82962; 84484; 85025; 85610; 85670; 85730; 93005; 93010; 93308; 93321; 93325; 95819; 96374; G0378; A9270-GY; G0515-GN; J1650; Q9967